=== PATIENT | male | born 1950 | race Caucasian/White ===

== ENCOUNTER 2017-12-17 09:40 | Emergency (ER) | payer OTHER ==
[~2017-12-17] VITALS: Ht 180.3 cm; Wt 86.2 kg
[~2017-12-17 09:40] MED LIST: AMLODIPINE-BEN1 EACH PO; CHEWABLE MULTI1 EACH PO; FISH OIL300 MG PO; GARLIC1000 MG PO; METFORMIN HCL850 MG PO; NAPROSYN500 MG PO; NEXIUM20 MG PO; ULTRAM50 MG PO
[2017-12-17 11:51] LABS: BILIRUBIN NEGATIVE; BLOOD LARGE; GLUCOSE (STRIP) 50; KETONES NEGATIVE; LEUKOCYTES NEGATIVE; NITRITE NEGATIVE; PROTEIN (STRIP) 100; SPECIFIC GRAVITY 1.006 (1.000-1.030); UROBILINOGEN 0.2 MG/DL (0.2-1.0)
[2017-12-17 11:52] LABS: APPEARANCE CLOUDY ((CLEAR)); COLOR RED ((YELLOW))
[2017-12-17 12:08] LABS: RED BLOOD CELLS TNTC /HPF (0-5)
[2017-12-17 12:36] LABS: HEMATOCRIT 43.6 % (38.0-50.0); HEMOGLOBIN 15.6 G/DL (12.5-16.6); MCH 30.4 PG (29.0-34.0); MCHC 35.8 G/DL (30.0-36.0); MCV 84.8 FL (86-99); PLATELET COUNT 227 K/uL (156-360); RBC DIS.WIDTH-CV 13.2 % (11.8-14.6); RBC DIS.WIDTH-SD 40.8 % (39-53); RED BLOOD COUNT 5.14 M/uL (4.00-5.50); WHITE BLOOD COUNT 11.2 K/uL (4.1-10.2)
[2017-12-17 12:46] LABS: ALBUMIN 4.2 g/dL (3.2-4.8); CHLORIDE 107 mEq/L (99-109); POTASSIUM 3.8 mEq/L (3.7-5.4); SODIUM 141 mEq/L (136-147)
[2017-12-17 12:48] LABS: GLUCOSE 175 mg/dL (70-99); TOTAL PROTEIN 8.4 g/dL (6.4-8.3)
[2017-12-17 12:50] LABS: TOTAL BILIRUBIN 0.8 mg/dL (0.0-1.0)
[2017-12-17 12:52] LABS: ALKALINE PHOSPHATASE 77 IU/L (3-129); CREATININE 1.2 mg/dL (0.6-1.3); GFR ESTIMATE (CALCULATED) > 59 mL/min/ (58.99-99999)
[2017-12-17 12:53] LABS: UREA NITROGEN (BUN) 10 mg/dL (9-23)
[2017-12-17 12:54] LABS: AST (GOT) 24 IU/L (2-34)
[2017-12-17 12:55] LABS: ALT (GPT) 15 IU/L (3-49)
[2017-12-17] MEDS ORDERED: FLOMAX0.4 MG PO (13:46)
[2017-12-17 14:35] VITALS: BP 130/78
== END 2017-12-17 14:39 | disposition home or self-care (01) ==
LOC: EME 09:40
PROVIDERS: Physician Assistant
DX: R33.9 Retention of urine, unspecified (principal); N35.9 Urethral stricture, unspecified; N40.1 Benign prostatic hyperplasia with lower urinary tract symptoms; N32.0 Bladder-neck obstruction; Z98.890 Other specified postprocedural states; Z90.49 Acquired absence of other specified parts of digestive tract
CPT/HCPCS: 80053; 81003; 85027; 99281; 99284; J0696; J2270; J3010

== ENCOUNTER 2017-12-28 01:33 | Emergency (ER) | payer OTHER ==
[~2017-12-28] VITALS: Ht 180.3 cm; Wt 83.9 kg
[~2017-12-28 01:33] MED LIST changes: +FLOMAX0.4 MG PO
[2017-12-28 02:35] LABS: HEMOGLOBIN 14.3 G/DL (12.5-16.6); MCH 30.2 PG (29.0-34.0); MCHC 34.9 G/DL (30.0-36.0); MCV 86.5 FL (86-99); PLATELET COUNT 272 K/uL (156-360); RBC DIS.WIDTH-CV 13.2 % (11.8-14.6); RBC DIS.WIDTH-SD 41.4 % (39-53); RED BLOOD COUNT 4.74 M/uL (4.00-5.50); WHITE BLOOD COUNT 11.9 K/uL (4.1-10.2)
[2017-12-28 02:45] LABS: APPEARANCE SL.HAZY ((CLEAR)); BILIRUBIN NEGATIVE; BLOOD SMALL; COLOR YELLOW ((YELLOW)); GLUCOSE (STRIP) 50; KETONES 20; LEUKOCYTES NEGATIVE; NITRITE NEGATIVE; PROTEIN (STRIP) >=500; SPECIFIC GRAVITY 1.017 (1.000-1.030); UROBILINOGEN 0.2 MG/DL (0.2-1.0)
[2017-12-28 02:46] LABS: ALBUMIN 3.8 g/dL (3.2-4.8); CHLORIDE 108 mEq/L (99-109); POTASSIUM 3.3 mEq/L (3.7-5.4); SODIUM 143 mEq/L (136-147)
[2017-12-28 02:48] LABS: GLUCOSE 144 mg/dL (70-99); TOTAL PROTEIN 7.1 g/dL (6.4-8.3)
[2017-12-28 02:49] LABS: BACTERIA NONE SEEN /HPF; EPITHELIAL CELLS NONE SEEN /HPF; MUCUS TRACE /LPF; RED BLOOD CELLS TNTC /HPF (0-5); WHITE BLOOD CELLS 0-5 /HPF (0-5)
[2017-12-28 02:50] LABS: TOTAL BILIRUBIN 0.8 mg/dL (0.0-1.0)
[2017-12-28 02:52] LABS: ALKALINE PHOSPHATASE 68 IU/L (3-129); GFR ESTIMATE (CALCULATED) > 59 mL/min/ (58.99-99999)
[2017-12-28 02:53] LABS: UREA NITROGEN (BUN) 14 mg/dL (9-23)
[2017-12-28 02:54] LABS: AST (GOT) 16 IU/L (2-34); DIRECT BILIRUBIN 0.3 mg/dL (0.0-0.3)
[2017-12-28 02:55] LABS: ALT (GPT) 13 IU/L (3-49); CREATINE KINASE 203 IU/L (1-294); LIPASE 27 U/L (1.0-51.0)
[2017-12-28] MEDS ORDERED: KEFLEX500 MG PO (04:01)
[2017-12-28] MEDS ORDERED: NORCO 7.5/321 TABLET PO (04:01)
[2017-12-28] MEDS ORDERED: PYRIDIUM200 MG PO (04:01)
[2017-12-28] MEDS ORDERED: MOTRIN800 MG PO (04:01)
[2017-12-28] MEDS ORDERED: VISTARIL25 MG PO (04:05)
[2017-12-28 04:57] VITALS: BP 143/75
== END 2017-12-28 04:59 | disposition home or self-care (01) ==
LOC: EME 01:33
PROVIDERS: Physician Assistant
DX: N30.01 Acute cystitis with hematuria (principal); M79.1 Myalgia; R19.7 Diarrhea, unspecified; N40.0 Benign prostatic hyperplasia without lower urinary tract symptoms; G47.00 Insomnia, unspecified; Z90.49 Acquired absence of other specified parts of digestive tract
CPT/HCPCS: 74177; 80048; 80076; 81003; 82550; 83690; 85027; 87086; 87493; 87506; 99281; 99285; J0696; J1885; J7030; Q0177